=== PATIENT | female | born 1995 ===

== ENCOUNTER 2016-06-17 00:59 | Inpatient (IN) | payer SELFPAY ==
[~2016-06-17] VITALS: Ht 160 cm; Wt 55.0 kg
[2016-06-17] MEDS ORDERED: NALOXONE 2 MG SYG IV ONE ×2 (01:30→05:00)
--- NOTE | 2016-06-17 02:12 | ERD ---
ER Documentation Chief Complaint Date/Time DATE: 06/17/16 TIME: 02:11 Chief Complaint HEROINE OVERDOSE HPI This is a 20-year-old female comes with a heroin overdose. Has found now. Give Narcan in the field good response. Upon arrival patient is lethargic but easily arousable. Given 2 mg Narcan intravenously here with immediate response ROS All systems reviewed and are negative except as per history of present illness. PMhx/Soc Medical and Surgical Hx: pt denies Medical Hx, pt denies Surgical Hx Hx Substance Use: Yes (HEROINE OVERDOSE THIS EVENING) Smoking Status: Unknown if ever smoked Physical Exam Vitals Vital Signs Date Time Temp Pulse Resp B/P Pulse Ox O2 Delivery O2 Flow Rate FiO2 06/17/16 01:14 147 40 129/76 97 Physical Exam Const: [] Head: Atraumatic Eyes: Normal Conjunctiva ENT: Normal External Ears, Nose and Mouth. Neck: Full range of motion..~ No meningismus. Resp: Clear to auscultation bilaterally Cardio: Regular rate and rhythm, no murmurs Abd: Soft, non tender, non distended. Normal bowel sounds Skin: No petechiae or rashes Back: No midline or flank tenderness Ext: No cyanosis, or edema Neur: Awake and alert Psych: Normal Mood and Affect Results 24 hrs Current Medications Medications (Trade) Dose Ordered Sig/Queta Route PRN Reason Start Time Stop Time Status Last Admin Dose Admin Naloxone HCl (Narcan) 2 mg ONCE ONCE IV 06/17/16 01:30 06/17/16 01:31 DC 06/17/16 01:30 Procedures/MDM Medical decision-making: This patient comes in for heroin overdose. She has been treated patient advised of using heroin. No SI or HI. Departure Diagnosis: Primary Impression: Heroin overdose Encounter type: initial encounter Injury intent: accidental or unintentional Qualified Code: T40.1X1A - Heroin overdose, accidental or unintentional, initial encounter Condition: Stable RO CISSE Jun 17, 2016 02:11
[2016-06-17] MEDS ORDERED: SOD CHLORIDE 0.9% 1,000 ML IV STA ×2 (06:32→08:52)
[2016-06-17 06:45] VITALS: BP 92/60
--- NOTE | 2016-06-17 06:58 | RADRPT ---
PROCEDURE: XR Chest. CLINICAL INDICATION: Shortness of breath TECHNIQUE: A single AP view of the chest was obtained. COMPARISON: None. FINDINGS: There are diffuse bilateral alveolar opacities. No pleural effusion or pneumothorax is seen. The c ardiomediastinal silhouette is within normal limits for size. The osseous structures are unremarkab le. IMPRESSION: Diffuse bilateral alveolar opacities may reflect pulmonary edema or multifocal pneumonia. RPTAT: HH .Massiel Butcher MD, MD Date Time Electronically viewed and signed by .Massiel Butcher MD, MD on 06/17/2016 06:58 .G/
[2016-06-17 07:18] LABS: BASOPHILS % 0.1 % (0.0-2.0); HEMATOCRIT 39.4 % (37.0-47.0); HEMOGLOBIN 13.6 g/dl (12.0-16.0); LYMPHOCYTES # 0.6 10^3/ul (0.8-2.9); LYMPHOCYTES % 3.5 % (18.0-55.0); MEAN CORPUSCULAR HEMOGLOBIN 31.4 pg (29.0-33.0); MEAN CORPUSCULAR HGB CONC 34.5 g/dl (32.0-37.0); MEAN CORPUSCULAR VOLUME 91.1 fl (72.0-104.0); MEAN PLATELET VOLUME 8.9 fl (7.4-10.4); MONOCYTE # 0.8 10^3/ul (0.3-0.9); MONOCYTES % 4.6 % (0.0-13.0); NEUTROPHIL # 15.5 10^3/ul (1.6-7.5); NEUTROPHILS % 91.8 % (30.0-74.0); PLATELET COUNT 197 10^3/UL (140-440); RED BLOOD COUNT 4.33 10^6/ul (4.20-5.40); RED CELL DISTRIBUTION WIDTH 12.5 % (11.5-14.5); UNCORRECTED WBC 16.9 10^3/ul (4.8-10.8); WHITE BLOOD COUNT 16.9 10^3/ul (4.8-10.8)
[2016-06-17 07:24] LABS: CONDITION 1; LH ANALYZER COMMENTS 1
[2016-06-17 07:49] LABS: CHLORIDE 102 mmol/L (97-110); POTASSIUM 4.8 mmol/L (3.5-5.1); SODIUM 142 mmol/L (135-144)
[2016-06-17 07:51] LABS: BILIRUBIN,INDIRECT 0.2 mg/dl (0-1.1); BILIRUBIN,TOTAL 0.2 mg/dl (0.2-1.3)
[2016-06-17 07:52] LABS: ALANINE AMINOTRANSFERASE 25 IU/L (13-69); ALBUMIN/GLOBULIN RATIO 1.25; ALKALINE PHOSPHATASE 64 IU/L (42-121); ANION GAP 17 (8-16); ASPARTATE AMINO TRANSFERASE 40 IU/L (15-46); BLOOD UREA NITROGEN 12 mg/dl (7-20); CALCIUM 8.9 mg/dl (8.4-10.2); CARBON DIOXIDE 28 mmol/L (21-31); GLUCOSE 119 mg/dl (70-220); TOTAL PROTEIN 7.2 g/dl (6.1-8.1)
[2016-06-17 07:54] LABS: ACETAMINOPHEN < 10.0 ug/ml (10.0-30.0); ETHANOL < 10.0 mg/dl; SALICYLATE < 1.0 mg/dl (5.0-30.0)
[2016-06-17] MEDS ORDERED: AZITHROMYCIN 250 MG TAB PO ONE (08:30)
[2016-06-17] MEDS ORDERED: AZIT250T94 PO (08:30)
[2016-06-17] MEDS ORDERED: ACETAMINOPHEN 325 MG TAB PO PRN ×2 (09:00→11:00)
[2016-06-17] MEDS ORDERED: CEFTRIAXONE 1 GM/50 ML (PMX) 50 ML IVPB ONE (09:00)
[2016-06-17] MEDS ORDERED: ONDANSETRON 4 MG INJ IV PRN ×2 (09:00→11:00)
--- NOTE | 2016-06-17 09:35 | QN ---
Documentation Comment The patient was signed out to me by my partner Dr. Fortune. The patient was persistently hypoxic and therefore I ordered chest x-ray and laboratory studies. Admit MDM: Patient's infectious symptoms have not stabilized and the patient is at risk of rapid decompensation. The patient will be admitted for careful hydration, antibiotic therapy, and infectious source control. Severe Sepsis criteria: Infectious source: Pneumonia End organ damage indicated by: Hypoxia Sepsis Management: Time of recognition of sepsis: 06:48 Within 3 hours of recognition: Blood cultures x 2 before broad-spectrum antibiotics: Yes 30 ml/kg NS bolus Completed Initial lactate 1.3 Repeat lactate pending Time of recognition of septic shock: No septic shock Septic Shock Assessment: Any lactic acid > 4.0 No Persistent hypotension (SBP < 90 or 40 mmHg drop, MAP < 65) despite 30 mL/kg IV fluid bolus No Volume Re-assessment for Septic Shock (post 30 ml/kg bolus): No septic shock at this time Persistent Hypotension Treatment: Comfort care No Central line Not Required Vasopressor started Not required I considered further perfusion assessment with CVP measurement, SCVO2, bedside ultrasound volume assessment, passive leg raise, trial of further fluid bolus. And proceeded with 30 ml/kg fluid bolus of NSS, broad spectrum antibiotics, and admission. The patient was persistently hypoxic and needed supplemental oxygen and therefore required admission. Accepting Care Team Current data and ongoing care discussed. Admitting Physician: Dr. Graham Ice Seller(s): None Outstanding Data: Culture results and repeat lactic acid Critical Care: Critical care time 35 minutes excluding all billable procedures Emergent fluid management while maintaining close respiratory support. Provision of immediate and broad-spectrum antibiotic therapy. Simultaneous assessment for possible sources in order to direct targeted therapy. Consideration for invasive and chemical support to prevent cardiopulmonary collapse. TERRY KOWALSKI MD Jun 17, 2016 09:34
[2016-06-17 10:16] VITALS: BP 100/57; PULSE 98; RESP 28
[2016-06-17 10:18] VITALS: Ht 160 cm; Wt 55.0 kg
[2016-06-17 10:46] VITALS: PULSE 97; RESP 25
[2016-06-17] MEDS ORDERED: NACL 0.9% 3 ML SYG IV SCH (11:00)
[2016-06-17] MEDS ORDERED: morphine 2 MG INJ IV PRN (11:00)
[2016-06-17] MEDS ORDERED: BISACODYL (EC) 5 MG TAB PO PRN (11:00)
[2016-06-17] MEDS ORDERED: MAGNESIUM HYDROXIDE 30ML CUP PO PRN (11:00)
[2016-06-17] MEDS ORDERED: HYDROCODONE/APAP (5/325) TAB PO PRN (11:00)
[2016-06-17] MEDS: SOD CHLORIDE 0.9% 1,000 ML IV SCH (11:13)
[2016-06-17 11:19] VITALS: PULSE 96; RESP 23
[2016-06-17] MEDS: PIPER-TAZO 2.25 GM (PMX) 50 ML IVPB SCH ×2 (12:29→17:47)
[2016-06-17] MEDS ORDERED: ALBUTEROL 0.5% (NEB) 2.5 MG/0.5 ML AMP HHN PRN (13:00)
[2016-06-17 13:07] LABS: HAAIG REFLEX REFLEX FILED
[2016-06-17] MEDS: ENOXAPARIN 40 MG/0.4 ML SYG SC SCH (13:17)
[2016-06-17 13:34] LABS: CK-MB 1.12 ng/ml (0.0-2.4)
[2016-06-17 13:38] LABS: TROPONIN-I 0.057 ng/ml (0.00-0.12)
[2016-06-17 13:57] LABS: THYROID STIMULATING HORMONE 0.357 MIU/L (0.465-4.680)
[2016-06-17 14:16] LABS: HEPATITIS B CORE ANTIBODY NEGATIVE (NEGATIVE)
[2016-06-17] MEDS: ALBUTEROL 0.5% (NEB) 2.5 MG/0.5 ML AMP HHN SCH ×2 (15:33→19:45)
--- NOTE | 2016-06-17 15:47 | HP ---
DATE OF ADMISSION: 06/17/2016 TIME OF EVALUATION: 10:30 a.m. REASON FOR ADMISSION: Intoxication. HISTORY OF PRESENT ILLNESS: This is a 20-year-old female who denies any past medical history other than history of psoriasis, who has been smoking heroin the whole day, and the patient overdosed on heroin. The patient verbalized that the overdosing was unintentional. The patient lives in a local motel. As per the patient, when she became unconscious, her friend tried CPR on her and called paramedics. As per paramedics, they gave her 2 doses of Narcan. There was no documented loss of pulse. In the emergency room, the patient was noticed to be severely hypoxic. Hence, the patient was placed on a 100% nonrebreather mask. The patient continued to be hypoxic. The patient also had leukocytosis. The patient remained afebrile. The patient underwent a chest x-ray which showed diffuse bilateral alveolar opacities that may reflect pulmonary edema or multifocal pneumonia. Blood cultures were drawn in the emergency room. The patient was started on antibiotics for any underlying community-acquired pneumonia. The patient was complaining of headache, dyspnea , chest pain. The patient verbalized that she was having rib pain, most probably secondary to the CPR. The patient denied any fevers or chills. The patient was complaining of some abdominal pain. She denied any nausea or vomiting. PAST MEDICAL HISTORY: Psoriasis. PAST SURGICAL HISTORY: Denies. HOME MEDICATIONS: Local ointment for psoriasis. ALLERGIES: NO KNOWN DRUG ALLERGIES. FAMILY HISTORY: Denies any family history of hypertension, diabetes, or coronary artery disease. SOCIAL HISTORY: The patient recently moved from [place] to [place]. The patient lives in a motel currently. Current heroin abuse. Denied using any other illicit drugs. Current every day smoker. Social drinker. REVIEW OF SYSTEMS: A 12-point review of systems was negative other than what is mentioned in the history of present illness. PHYSICAL EXAMINATION: VITAL SIGNS: Temperature 98.3, pulse rate 97, respiratory rate 25, blood pressure 100/57, oxygen saturation 99% on 6 L oxygen via nasal cannula. GENERAL: This is a well-developed, well-nourished female lying in bed , slightly lethargic, not in any apparent distress. HEENT: Head normocephalic and atraumatic. Eyes: Anicteric sclerae. Conjunctivae clear. ENT: Nasal septum is midline. Oral mucosa is dry. NECK: Supple. JVD noticed. RESPIRATORY: Bilaterally diminished breath sounds. No adventitious breath sounds. No use of accessory muscles of respiration. CARDIAC: Regular rate and rhythm. No obvious murmurs heard. ABDOMEN: Abdomen scaphoid. Soft. Diffuse tenderness. Bowel sounds hypoactive in all 4 quadrants. GENITOURINARY: Deferred. EXTREMITIES: No cyanosis, no clubbing, no edema. Peripheral pulses are palpable. NEUROLOGIC: The patient is awake, alert, and oriented. Somnolent. Moves all 4 extremities. No focal deficits. SKIN: Maculopapular rashes on the face and scalp. LABORATORY AND DIAGNOSTIC DATA: WBC 16.9, hemoglobin 13.6, hematocrit 39.4, platelet count 197. Sodium 142, potassium 4.8, chloride 102, carbon dioxide 28 , anion gap 17, BUN 12, creatinine 0.70, glucose 119, lactic acid 1.3, calcium 8.9, total bilirubin 0.2, direct bilirubin 0.02, indirect bilirubin 0.2, AST 40 , ALT 25, total protein 7.2, albumin 4.0, globulin 3.20. Drug toxicology: Ethyl alcohol less than 10, acetaminophen less than 10, salicylate less than 1. Chest x-ray: Diffuse bilateral alveolar opacities. May reflect pulmonary edema or multifocal pneumonia. IMPRESSION: This is a 20-year-old female patient who was brought into the emergency room secondary to heroin overdose, was found to have evidence of bilateral infiltrates on chest x-ray. The patient will be admitted here for further treatment and evaluation. ASSESSMENT AND PLAN: 1. Acute respiratory failure. Hypoxic. Most probably secondary to #2. The patient will be empirically treated for any underlying aspiration pneumonia. A BNP level will be obtained to evaluate for any pulmonary edema. The patient has no evidence of any cardiomegaly. The patient denies any cardiac history. The patient will be started on inhaled bronchodilators. The patient will be maintained on supplemental oxygen. 2. Bilateral alveolar infiltrates. Fluid versus pneumonia. The patient will be started on antibiotics including coverage for anaerobes. The patient will be treated for any underlying aspiration pneumonia. Cleaning cultures will be obtained. Influenza A and B screen will be done. 3. Heroin overdose. Status post IV Narcan. The patient will be advised on cessation of recreational drugs. A social work consult will be obtained. A urine drug screen will be obtained to evaluate for any other illicit drug use. A baseline 12-lead EKG will be obtained. 4. Systemic inflammatory response syndrome with leukocytosis and sinus tachycardia. Etiology unclear. Cleaning cultures will be obtained. The patient will be started on empiric antibiotics. Will trend lactic acid levels. PLAN. The patient will be admitted to inpatient medical/surgical floor. The patient will be started on a regular diet. The patient will be started on DVT prophylaxis and gastrointestinal prophylaxis. Activities will be with supervision. Hepatitis panel will be obtained since the patient was reportedly using IV heroin. The rest of the patient's management will be based on the clinical course and the results of diagnostic studies. Based on the patient's clinical presentation, she most probably requires at least 1 midnight's stay for further management and evaluation of her clinical presentation. The case and management of this patient was fully discussed with Dr. Glez. Approximately 50 minutes was spent on history and physical on this patient. CARMELLA GLEZ MD, AM/MARY Conf#: [id number] DID#: [id number] MTDD
[2016-06-17 16:46] LABS: ADD UMIC NO; URINE BILIRUBIN (Dip) NEGATIVE (NEGATIVE); URINE BLOOD (Dip) NEGATIVE (NEGATIVE); URINE COLOR LT. YELLOW (YELLOW); URINE KETONES (Dip) NEGATIVE (NEGATIVE); URINE LEUKOCYTE ESTERASE (Dip) NEGATIVE (NEGATIVE); URINE NITRITE (Dip) NEGATIVE (NEGATIVE); URINE TOTAL PROTEIN (Dip) NEGATIVE (NEGATIVE); URINE UROBILINOGEN (Dip) 0.2 E.U./dL (0.1-1.0)
[2016-06-17 19:53] VITALS: BP 99/51; RESP 16
[2016-06-17] MEDS: FAMOTIDINE 20 MG TAB PO SCH (22:32)
[2016-06-18] MEDS: PIPER-TAZO 2.25 GM (PMX) 50 ML IVPB SCH ×3 (00:11→11:56)
[2016-06-18 00:28] LABS: BARBITURATES Negative (NEGATIVE); BENZODIAZEPINES Negative (NEGATIVE); CANNABINOIDS Negative (NEGATIVE); COCAINE Negative (NEGATIVE); OPIATES Positive (NEGATIVE)
[2016-06-18] MEDS: SOD CHLORIDE 0.9% 1,000 ML IV SCH ×2 (03:06→04:24)
[2016-06-18 05:49] LABS: BASOPHILS % 0.3 % (0.0-2.0); EOSINOPHILS # 0.2 10^3/ul (0.0-0.5); HEMATOCRIT 29.7 % (37.0-47.0); LYMPHOCYTES # 2.2 10^3/ul (0.8-2.9); LYMPHOCYTES % 18.1 % (18.0-55.0); MEAN CORPUSCULAR HEMOGLOBIN 31.4 pg (29.0-33.0); MEAN CORPUSCULAR HGB CONC 33.7 g/dl (32.0-37.0); MEAN PLATELET VOLUME 8.7 fl (7.4-10.4); MONOCYTE # 0.7 10^3/ul (0.3-0.9); MONOCYTES % 5.5 % (0.0-13.0); NEUTROPHIL # 8.9 10^3/ul (1.6-7.5); NEUTROPHILS % 74.1 % (30.0-74.0); PLATELET COUNT 126 10^3/UL (140-440); RED CELL DISTRIBUTION WIDTH 12.6 % (11.5-14.5)
[2016-06-18 06:02] LABS: CONDITION 1
[2016-06-18 06:03] LABS: D-DIMER 1027.91 ng/ml (<460)
[2016-06-18 06:17] LABS: ALBUMIN 2.8 g/dl (3.3-4.9); POTASSIUM 3.7 mmol/L (3.5-5.1)
[2016-06-18 06:19] LABS: BILIRUBIN,INDIRECT 0.3 mg/dl (0-1.1); BILIRUBIN,TOTAL 0.3 mg/dl (0.2-1.3); CREATININE 0.63 mg/dl (0.44-1.00)
[2016-06-18 06:20] LABS: ALBUMIN/GLOBULIN RATIO 1.16; TOTAL PROTEIN 5.2 g/dl (6.1-8.1)
[2016-06-18 06:21] LABS: CALCIUM 8.4 mg/dl (8.4-10.2)
[2016-06-18 06:45] LABS: CK-MB 0.5 ng/ml (0.0-2.4)
[2016-06-18 06:46] LABS: CHOL/HDL RATIO 2.7 RATIO; MAGNESIUM 1.8 mg/dl (1.7-2.5); PHOSPHORUS 2.6 mg/dl (2.5-4.9)
[2016-06-18 06:48] LABS: TROPONIN-I 0.025 ng/ml (0.00-0.12)
[2016-06-18 07:51] VITALS: BP 109/60; RESP 19
[2016-06-18] MEDS: ALBUTEROL 0.5% (NEB) 2.5 MG/0.5 ML AMP HHN SCH ×3 (08:48→19:23)
[2016-06-18] MEDS: FAMOTIDINE 20 MG TAB PO SCH ×2 (08:50→20:51)
[2016-06-18] MEDS: ENOXAPARIN 40 MG/0.4 ML SYG SC SCH (08:53)
[2016-06-18] MEDS ORDERED: INFLUENZA VIRUS VACCINE 0.5 ML SYG IM* ONE (09:00)
--- NOTE | 2016-06-18 11:03 | RADRPT ---
Vent Rate: 87 bpm RR Interval: 0 msec IA Interval: 144 msec QRS Duration: 90 msec QT Interval: 356 msec QTC Interval: 428 msec P-R-T [place]: 61 - 46 - 49 degrees Normal sinus rhythm Nonspecific T wave abnormality Abnormal ECG Electronically Signed By: James Chambers [id number]
--- NOTE | 2016-06-18 11:26 | RADRPT ---
PROCEDURE: XR Chest 1 View. CLINICAL INDICATION: Shortness of breath, infiltrate TECHNIQUE: AP view of the chest were obtained. COMPARISON: June 17, 2016 FINDINGS: The cardiomediastinal silhouette is within normal limits. The lungs are hyperexpanded. Perihilar in filtrates in both lungs have decreased. Mild lower lobe residual remains. Osseous structures are in tact. IMPRESSION: Hyperexpanded lungs. Interval decrease in perihilar infiltrates in both lungs. Mild bilateral lower lobe residual remain s. RPTAT: AA .Cam Nelson MD, MD Date Time Electronically viewed and signed by .Cam Nelson MD, on 06/18/2016 11:25 .P/
[2016-06-18] MEDS ORDERED: FUROSEMIDE 20 MG INJ IV ONE (11:30)
[2016-06-18 11:58] VITALS: BP 120/75; PULSE 80; RESP 22
--- NOTE | 2016-06-18 13:26 | RADRPT ---
Echocardiogram Report Patient Name: BRODIE MARTINEZ Gender: Female Date: 1995 Study Date: 17-Jun-2016 Instructor Physical Education: [facility] Location: [address] Ref. Physician: CARMELLA GOMEZ Quality: Good Procedures: Transthoracic echocardiogram with complete 2D, M-Mode, and doppler examination. Indications: Evaluate Left Ventricular function. 2D/M Mode Doppler Measurement Value Normal Ranges Measurement Value Normal Ranges LVIDd 2D 4.1 3.5 - 5.6 cm AV Peak Panda 1.3 m/sec LVIDs 2D 2.9 2.1 - 4.1 cm AV Peak PG 7.0 mmHg FS 2D 28.5 % LVOT Peak Panda 0.7 m/sec LVPWd 2D 0.9 0.6 - 1.1 cm LVOT Peak PG 2.0 mmHg IVSd 2D 0.8 0.6 - 1.1 cm MV E Peak Panda 1.0 m/sec IVS/LVPW 2D 0.9 MV A Peak Panda 0.5 m/sec AoR Diam 2D 2.3 2.0 - 3.7 cm MV E/A 1.8 LA/Ao 2D 1 0 - 1 MV Decel Time 197 msec EDV 2D 69.4 cm3 MV E/A 1.8 ESV 2D 25.4 cm3 TR Peak Panda 1.7 m/sec LA Dimen 2D 3.0 2.3 - 4.0 cm TR Peak PG 12.0 mmHg RVSP 15.0 mmHg Findings Left Ventricle: Normal left ventricular systolic function. Normal left ventricular cavity size. Normal left ventricular wall thickness. Ejection fraction is visually estimated at 60 %. Tissue Doppler/Mitral Doppler indices are within normal limits. Right Ventricle: Normal right ventricular size. Normal right ventricular systolic function. Left Atrium: The left atrium is normal in size. Right Atrium: The right atrium is normal in size. Mitral Valve: Mild mitral leaflet calcification. Mild mitral annular calcification. Trace mitral regurgitation. Aortic Valve: Normal appearance of the aortic valve. No significant aortic stenosis or insufficiency. Tricuspid Valve: Normal appearance of the tricuspid valve. Estimated peak PA systolic pressure 15 mmHg. There is trace tricuspid regurgitation. Pericardium: Normal pericardium with no significant pericardial effusion. Aorta: Normal aortic root. IVC: Normal size and normal respiratory collapse consistent with normal right atrial pressure. Conclusions 1.Normal left ventricular systolic function. Normal left ventricular cavity size. Normal left ventricular wall thickness. Ejection fraction is visually estimated at 60 %. Tissue Doppler/Mitral Doppler indices are within normal limits. 2.Mild mitral leaflet calcification. Mild mitral annular calcification. Trace mitral regurgitation. 3.Normal appearance of the tricuspid valve. Estimated peak PA systolic pressure 15 mmHg. There is trace tricuspid regurgitation. Electronically Signed By: Manas Fernandez 18-Jun-2016 13:26:04 -0800 Patient Name: BRODIE MARTINEZ Study Date: 17-Jun-[id number]
[2016-06-18] MEDS ORDERED: IOHEXOL 100 ML ONE (14:30)
[2016-06-18] MEDS ORDERED: SOD CHLORIDE 0.9% 100 ML ONE (14:30)
[2016-06-18] MEDS ORDERED: IOHEXOL 350MG/ML 50 ML BTL ONE (14:31)
--- NOTE | 2016-06-18 14:53 | RADRPT ---
PROCEDURE: CT Pulmonary Angiogram. CLINICAL INDICATION: Chest pain and shortness of breath. TECHNIQUE: CT pulmonary angiogram and a CT scan of the chest with contrast was performed. The pat ient was scanned following the uncomplicated intravenous administration of 112 cc of Omnipaque-350 i ntravenous contrast. 2-D coronal reformatted images were obtained from the axial source images. In addition, 3-D post processing was performed. Total exam DLP is 170.04 mGy-cm. CTDIvol is 16.90 mG y. One or more of the following dose reduction techniques were used: Automated exposure control, ad justment of the mA and/or kV according to patient size, use of iterative reconstruction technique. COMPARISON: Chest radiograph done earlier the same day. FINDINGS: The pulmonary arteries are normal with no filling defect or lack of enhancement to suggest pulmonary artery embolism. There is mild atelectasis at both lung bases posteriorly. The lungs are otherwise clear with no oth er airspace or interstitial disease. There is no pulmonary nodule or mass lesion. There is no pneumothorax. There is no mediastinal or hilar lymphadenopathy or mass. There are small bilateral pleural effusions. There is no pericardial effusion. The thoracic aorta is normal with no aneurysm or dissection. Images through the upper abdomen demonstrate normal visualized portions of the liver, spleen, and ad renals. The osseous structures are normal with no fracture or lytic lesion. IMPRESSION: 1. Normal CT pulmonary angiogram with no evidence of pulmonary artery embolism. 2. Mild atelectasis at the lung bases posteriorly. 2. Small bilateral pleural effusions. 3. Otherwise normal study. RPTAT: QQ .Ambrocio Macias MD, MD Date Time Electronically viewed and signed by .Ambrocio Macias MD, MD on 06/18/2016 14:52 .R/
--- NOTE | 2016-06-18 15:48 | PN ---
Date/Time of Note Date/Time of Note DATE: 06/18/16 TIME: 15:47 Assessment/Plan VTE Prophylaxis VTE Prophylaxis Intervention: LMWH Lines/Catheters IV [facility] Peripheral IV Assessment/Plan Chief Complaint/Hosp Course 1. Acute respiratory failure. Hypoxic. Most probably secondary to #2. CTA negative for any PE. CT showing bibasilar atelectasis and small bilateral pleural effusions. Continue inhaled bronchodilators. Start incentive spirometry. Will reduce spot diuretics. 2. Bilateral alveolar infiltrates. Fluid versus pneumonia. Resolved. No evidence of any pneumonia or heart failure. 2D echocardiogram showing preserved left ventricular ejection fraction. Will discontinue all antibiotics. 3. Heroin overdose. Status post IV Narcan. Social Work consult obtained. 4. Systemic inflammatory response syndrome with leukocytosis and sinus tachycardia. Cleaning cultures negative. Will discontinue all antibiotics. 5. Fluids, electrolytes, and nutrition. Regular diet as tolerated. 6. DVT prophylaxis. Subcutaneous Lovenox. 7. Gastrointestinal prophylaxis. Histamine 2 receptor blockers. 8. Plan. Continue supplemental oxygen and inhaled bronchodilators. Discontinue IV fluids. Discontinue IV antibiotics. Start incentive spirometry. Await social work evaluation. Case discussed with Dr. Jimenez. Problems: Subjective 24 Hr Interval Summary Free Text/Dictation Remains on low flow O2. Desaturates on room air. Complains of chest pain. Exam/Review of Systems Vital Signs Vitals Vital Signs Date Time Temp Pulse Resp B/P Pulse Ox O2 Delivery O2 Flow Rate FiO2 06/18/16 13:36 92 94 06/18/16 11:58 22 120/75 Nasal Cannula 1.0 06/18/16 07:51 98.3 06/17/16 05:53 100 Intake and Output 06/17/16 06/17/16 06/18/16 15:00 23:00 07:00 Intake Total 520 ml 1780 ml Output Total 800 ml Balance 520 ml 980 ml Exam GENERAL: This is a well-developed, well-nourished female lying in bed not in any apparent distress. HEENT: Head normocephalic and atraumatic. Eyes: Anicteric sclerae. Conjunctivae clear. ENT: Nasal septum is midline. Oral mucosa is dry. NECK: Supple. JVD noticed. RESPIRATORY: Bilaterally diminished breath sounds. No adventitious breath sounds. No use of accessory muscles of respiration. CARDIAC: Regular rate and rhythm. No obvious murmurs heard. ABDOMEN: Abdomen scaphoid. Soft. Diffuse tenderness. Bowel sounds hypoactive in all 4 quadrants. GENITOURINARY: Deferred. EXTREMITIES: No cyanosis, no clubbing, no edema. Peripheral pulses are palpable. NEUROLOGIC: The patient is awake, alert, and oriented. Moves all 4 extremities. No focal deficits. SKIN: Maculopapular rashes on the face and scalp. Results Result Diagram: 06/18/1652406/18/16 0525 Results 24 hrs Laboratory Tests Test 06/17/16 15:55 06/18/16 05:25 Urine Amphetamines Screen Negative Urine Barbiturates Negative Urine Benzodiazepines Screen Negative Urine Bilirubin NEGATIVE Urine Cannabinoids Negative Urine Clarity CLEAR Urine Cocaine Screen Negative Urine Color LT. YELLOW Urine Glucose 0.1% H Urine Hemoglobin NEGATIVE Urine Ketones NEGATIVE Urine Leukocyte Esterase NEGATIVE Urine Nitrite NEGATIVE Urine Opiates Screen Positive Urine Test NEGATIVE Urine Specific [place] 1.020 Urine Total Protein NEGATIVE Urine Urobilinogen 0.2 E.U./dL Urine pH 6.0 Alanine Aminotransferase (ALT/SGPT) 31 Albumin 2.8 #L Albumin/Globulin Ratio 1.16 Alkaline Phosphatase 51 Anion Gap 14 Aspartate Amino Transf (AST/SGOT) 16 B-Type Natriuretic Peptide 773 H Basophils # 0.0 Basophils % 0.3 Blood Urea Nitrogen 8 Calcium Level 8.4 Carbon Dioxide Level 26 Chloride Level 107 Cholesterol Level 100 Cholesterol/HDL Ratio 2.7 Creatine Kinase 63 Creatine Kinase Index 0.8 Creatinine 0.63 Creatinine Kinase MB (Mass) 0.50 D-Dimer 1027.91 H D-Dimer Comment Direct Bilirubin 0.00 Eosinophils # 0.2 Eosinophils % 2.0 Globulin 2.40 Glucose Level 75 # HDL Cholesterol 37 Hematocrit 29.7 #L Hemoglobin 10.0 #L Indirect Bilirubin 0.3 LDL Cholesterol, Calculated 50 Lactic Acid Level 0.8 Lymphocytes # 2.2 Lymphocytes % 18.1 Magnesium Level 1.8 Mean Corpuscular Hemoglobin 31.4 Mean Corpuscular Hemoglobin Concent 33.7 Mean Corpuscular Volume 93.0 Mean Platelet Volume 8.7 Monocytes # 0.7 Monocytes % 5.5 Neutrophils # 8.9 H Neutrophils % 74.1 H Nucleated Red Blood Cells # 0.0 Nucleated Red Blood Cells % 0.0 Phosphorus Level 2.6 Platelet Count 126 #L Potassium Level 3.7 Red Blood Count 3.20 #L Red Cell Distribution Width 12.6 Sodium Level 143 Total Bilirubin 0.3 Total Protein 5.2 #L Triglycerides Level 64 Troponin I 0.025 White Blood Count 12.0 #H Medications Medications Current Medications Ondansetron HCl (Zofran Inj) 4 mg Q6H PRN IV NAUSEA AND/OR VOMITING; Start 04/23 at 11:00 Acetaminophen (Tylenol Tab) 650 mg Q6H PRN PO PAIN LEVEL 1-3 OR FEVER; Start at 11:00 Acetaminophen/ Hydrocodone Bitart ([place] (5/325)) 1 tab Q6H PRN PO MODERATE PAIN LEVEL 4-6; Start 06/17/16 at 11:00 Morphine Sulfate (morphine) 2 mg Q4H PRN IV SEVERE PAIN LEVEL 7-10; Start 06/17 at 11:00 Magnesium Hydroxide (Milk Of Mag) 30 ml DAILY PRN PO CONSTIPATION; Start at 11:00 Bisacodyl (Dulcolax) 5 mg DAILY PRN PO CONSTIPATION; Start 06/17/16 at 11:00 Famotidine (Pepcid) 20 mg Q12 PO Last administered on 06/18/16 08:50; Admin Dose 20 MG; Start 06/17/16 at 21:00 Enoxaparin Sodium (Lovenox) 40 mg DAILY SC Last administered on 06/18/16 08:53 ; Admin Dose 40 MG; Start 06/17/16 at 12:00 Procedures Procedures CTA Chest IMPRESSION: 1. Normal CT pulmonary angiogram with no evidence of pulmonary artery embolism. 2. Mild atelectasis at the lung bases posteriorly. 2. Small bilateral pleural effusions. 3. Otherwise normal study. 2D Echocardiogram Conclusions 1. Normal left ventricular systolic function. Normal left ventricular cavity size. Normal left ventricular wall thickness. Ejection fraction is visually estimated at 60 %. Tissue Doppler/Mitral Doppler indices are within normal limits. 2. Mild mitral leaflet calcification. Mild mitral annular calcification. Trace mitral regurgitation. 3. Normal appearance of the tricuspid valve. Estimated peak PA systolic pressure 15 mmHg. There is trace tricuspid regurgitation. CARMELLA GOMEZ NP Jun 18, 2016 15:48
[2016-06-18 19:52] VITALS: BP 119/72; RESP 20
[2016-06-18] MEDS ORDERED: hydrOXYzine HCL 25 MG TAB PO PRN (21:00)
[2016-06-19 05:57] LABS: BASOPHILS % 0.4 % (0.0-2.0); EOSINOPHILS # 0.5 10^3/ul (0.0-0.5); EOSINOPHILS % 4.9 % (0.0-7.0); HEMATOCRIT 32.4 % (37.0-47.0); HEMOGLOBIN 10.9 g/dl (12.0-16.0); LYMPHOCYTES # 2.2 10^3/ul (0.8-2.9); LYMPHOCYTES % 19.9 % (18.0-55.0); MEAN CORPUSCULAR HEMOGLOBIN 30.9 pg (29.0-33.0); MEAN CORPUSCULAR HGB CONC 33.8 g/dl (32.0-37.0); MEAN CORPUSCULAR VOLUME 91.5 fl (72.0-104.0); MEAN PLATELET VOLUME 8.4 fl (7.4-10.4); MONOCYTE # 0.6 10^3/ul (0.3-0.9); MONOCYTES % 5.7 % (0.0-13.0); NEUTROPHIL # 7.6 10^3/ul (1.6-7.5); NEUTROPHILS % 69.1 % (30.0-74.0); PLATELET COUNT 165 10^3/UL (140-440); RED BLOOD COUNT 3.54 10^6/ul (4.20-5.40); RED CELL DISTRIBUTION WIDTH 12.6 % (11.5-14.5)
[2016-06-19 06:19] LABS: CONDITION 1
[2016-06-19 06:25] LABS: PHOSPHORUS 3.3 mg/dl (2.5-4.9)
[2016-06-19 06:28] LABS: POTASSIUM 3.6 mmol/L (3.5-5.1)
[2016-06-19 06:31] LABS: CREATININE 0.73 mg/dl (0.44-1.00)
[2016-06-19 06:32] LABS: CALCIUM 9.3 mg/dl (8.4-10.2)
[2016-06-19 07:58] VITALS: BP 113/59; RESP 18
[2016-06-19] MEDS: ALBUTEROL 0.5% (NEB) 2.5 MG/0.5 ML AMP HHN SCH (08:00)
[2016-06-19] MEDS: FAMOTIDINE 20 MG TAB PO SCH (08:12)
[2016-06-19] MEDS: ENOXAPARIN 40 MG/0.4 ML SYG SC SCH (08:14)
--- NOTE | 2016-06-19 09:37 | PDOCDIS ---
Discharge Instructions DIAGNOSIS Discharge Diagnosis: Heroin overdose CONDITION Patient Condition: Good HOME CARE INSTRUCTIONS: Diet Instructions: Regular ACTIVITY: Activity Restrictions: No Restrictions OTHER ORDERS: Other Orders: 1. Regular diet as tolerated. 2. Activities as tolerated. 3. Follow-up with drug rehabilitation facility. CARMELLA GOMEZ NP Jun 19, 2016 09:37
--- NOTE | 2016-06-19 11:38 | DS ---
DATE OF ADMISSION: 06/17/2016 DATE OF DISCHARGE: 06/19/2016 FINAL DIAGNOSES: 1. Acute hypoxic respiratory failure, resolved. 2. Bilateral alveolar infiltrates, resolved. 3. Heroin overdose. 4. Status post systemic inflammatory response syndrome. 5. Psoriasis. HOSPITAL COURSE: This is a 20-year-old female who denies any past medical history other than a history of psoriasis who had been smoking heroin the whole day on 06/16/2016, and the patient overdosed on heroin. The patient verbalized that she was also injecting heroin. She verbalized that the overdosing was unintentional. The patient was in a local motel. As per the patient, when she became unconscious, her friend tried CPR on her and called paramedics. As per paramedics, they gave her 2 doses of Narcan. There was no documented loss of pulse. In the emergency room, the patient was noticed to be severely hypoxic. Hence, the patient was placed on a 100% nonrebreather mask. The patient continued to be hypoxic. The patient also had leukocytosis. The patient remained afebrile. The patient underwent a chest x-ray which showed diffuse bilateral alveolar opacities that may reflect pulmonary edema or multifocal pneumonia. Blood cultures were drawn in the emergency room. The patient was started on antibiotics for any underlying community-acquired pneumonia. The patient was admitted to inpatient setting. The patient was started on antibiotics for any underlying pneumonia including any concomitant aspirations, as the patient was unconscious after the heroin overdose. The patient was maintained on supplemental oxygen and inhaled bronchodilators. The reason for the patient's hypoxia was extensively evaluated. The patient's bilateral infiltrates evident on chest x-ray could have been most probably some fluid from pulmonary edema since this resolved with a repeat chest x-ray. The patient's cultures remained negative. The patient had no evidence of any pneumonia. Hence, the patient's antibiotics were later discontinued. However, the patient continued to be hypoxic. The patient also had an elevated D-dimer. The patient had no risk factors for any underlying PE including any long flights or long drives or any use of oral contraceptive pills. However, the patient is a current smoker. Nevertheless, since the patient continued to be hypoxic, the patient underwent a CT angiogram of the chest that was negative for any pulmonary embolism. However, this revealed small bilateral pleural effusions and mild atelectasis of the lung bases posteriorly. Consequently, the patient was given spot diuretics, and she was encouraged to use incentive spirometry. The patient was gradually weaned off of oxygen to room air with improvement in the patient's oxygen status. The patient was also evaluated for any underlying heart failure that could have caused the pulmonary edema. However, 2D echocardiogram showed preserved left ventricular ejection fraction. The patient was also noticed to have systemic inflammatory response syndrome with leukocytosis and sinus tachycardia. The patient's sue cultures remained negative. Hence, the patient's antibiotics were discontinued. The patient was evaluated by a outreach and education social worker. The patient lives in [place], and the patient was admitted to a local drug rehabilitation program in [place]. The patient verbalized that the patient she has accidentally relapsed on heroin. The patient wishes to go to the drug rehabilitation program in [place]. The patient has her sister who came from [place] for support. As per outreach and education social worker note, the patient is scheduled to be assessed by counselor from the drug rehabilitation facility from [place] at [facility]. The patient is medically stable to be discharged. The patient will be provided with support by the patient's sister before the patient can go to the drug rehabilitation program. The patient had a stable hospital course. The patient is clinically stable to be discharged. The patient denied any complaints at the time of discharge. DISCHARGE DISPOSITION/PLAN: The patient will be discharged home today. The patient was instructed to resume activities as tolerated and to take a regular diet as tolerated. The patient was instructed to follow up with the drug rehabilitation facility and to abstain from using heroin. The patient verbalized understanding of her discharge instructions. CONDITION AT DISCHARGE: Stable. DISCHARGE MEDICATIONS: None. PERTINENT LABORATORY AND DIAGNOSTIC DATA: 1. CT angiogram of the chest. Normal CT pulmonary angiogram with no evidence of pulmonary artery embolism. Mild atelectasis at the lung bases posteriorly. Small bilateral pleural effusions. 2. Chest x-ray on admission. Diffuse bilateral alveolar opacities which may reflect pulmonary edema or multifocal pneumonia. 3. Repeat chest x-ray on 06/18/2016. Hyperexpanded lungs. Interval decrease in perihilar infiltrates in both lungs. Mild bilateral lower lobe residual remains. 4. Two-dimensional echocardiogram. Normal left ventricular systolic function. Ejection fraction of 60%. Mild mitral leaflet calcification. Mild mitral annular calcification. Trace mitral regurgitation. Estimated peak PA systolic pressure of 15 mmHg. Trace tricuspid regurgitation. 5. Urine culture negative. 6. Blood culture x2 negative. 7. Influenza A and B screen negative. 8. Latest CBC: WBC 11.0, hemoglobin 10.9, hematocrit 32.4, platelet count 155. 9. Latest BMP: Sodium 146, potassium 3.6, chloride 103, carbon dioxide 32, anion gap 15, BUN 9, creatinine 0.73, magnesium 2.0. 10. Hemoglobin A1c 5.1. 11. Fasting lipid panel: Triglycerides 64, total cholesterol 100, LDL 50, SDL 37. 12. Vitamin D 35.4. 13. Urine drug toxicology positive for opioids. 14. HIV 1 and 2 antibody negative. 15. Hepatitis serology: Hepatitis C antibody negative, hepatitis B core total antibody negative, hepatitis B surface antigen negative, hepatitis A IgM antibody nonreactive. 16. Urine test negative. The case and management of this patient was fully discussed with Dr. Glez. Approximately 35 minutes was spent on coordinating the discharge on this patient. CARMELLA GLEZ MD, AM/MARY Conf#: [id number] DID#: [id number] DARLEEN
== END 2016-06-19 12:10 | disposition home or self-care (01) | DRG 917 ==
LOC: E/R 00:59 → MS1 08:58 → MS2 10:14
PROVIDERS: ADMIT Family Medicine; ATTEND Family Medicine
DX: T40.1X1A Poisoning by heroin, accidental (unintentional), initial encounter (principal); J69.0 Pneumonitis due to inhalation of food and vomit; J96.01 Acute respiratory failure with hypoxia; R65.10 Systemic inflammatory response syndrome (SIRS) of non-infectious origin without acute organ dysfunction; R91.8 Other nonspecific abnormal finding of lung field; L40.9 Psoriasis, unspecified; I10 Essential (primary) hypertension; Y92.59 Other trade areas as the place of occurrence of the external cause
CPT/HCPCS: 36415; 71010; 71275; 80048; 80053; 80061; 80306; 80307; 81003; 82550; 82553; 82652; 83036; 83605; 83735; 83880; 84100; 84439; 84443; 84484; 84703; 85025; 85378; 86703; 86704; 86709; 86803; 87040; 87086; 87340; 87400; 90686; 93005; 93306; 94640; 94664; 96374; 96375; 96376; J1940; J0696; J1650; J2543; J7030; Q9967